=== PATIENT | male | born 1965 ===

== ENCOUNTER 2020-07-10 07:16 | Day surgery (SDC) | payer OTHER ==
[~2020-07-10] VITALS: Ht 182.9 cm; Wt 168.2 kg
[2020-07-10 07:49] LABS: BASOPHILS 0.3 % (0-2); CALCIUM 9.6 mg/dL (8.5-10.1); CARBON DIOXIDE 31.2 mmol/L (21.0-32.0); CREATININE - SERUM 1.1 mg/dL (0.6-1.3); EOSINOPHILS 1.1 % (0-7); HEMOGLOBIN 14.1 g/dL (13.5-17.5); IMMATURE GRANULOCYTES 0.3 % (0-5); LYMPHOCYTES 18.4 % (15-50); MCH 28.3 pg (26.0-34.0); MCHC 32.8 g/dL (31.0-37.0); MCV 86.2 fL (80.0-100.0); MEAN PLATELET VOLUME 9.4 fL (7.4-10.4); NEUTROPHIL ABS# 7.63 10x3/uL (1.78-5.38); NEUTROPHILS 73.9 % (40-80); PLATELET COUNT 330 10x3/uL (130-400); POTASSIUM - SERUM 3.2 mmol/L (3.5-5.1); RBC 4.99 10x6/uL (4.20-6.10); RDW 14.7 % (11.5-14.5); WBC 10.3 10x3/uL (4.8-10.8)
[2020-07-10] MEDS ORDERED: COZAAR100 MG PO (08:13)
[2020-07-10] MEDS ORDERED: CELEXA20 MG PO (08:13)
[2020-07-10] MEDS ORDERED: MELOXICAM TAB 15M (08:13)
[2020-07-10] MEDS ORDERED: GLIPIZIDE5 MG PO (08:13)
[2020-07-10] MEDS ORDERED: ZOCOR40 MG PO (08:14)
[2020-07-10] MEDS ORDERED: GLUCOPHAGE500 MG PO (08:14)
[2020-07-10] MEDS ORDERED: PIOGLITAZONE TAB 30M (08:14)
[2020-07-10] MEDS ORDERED: HCTZ25 MG PO (08:15)
[2020-07-10] MEDS ORDERED: ALLOPURINOL TAB 300 (08:15)
[2020-07-10 08:29] VITALS: BP 160/98; Ht 182.9 cm; Wt 168.2 kg
--- NOTE | 2020-07-10 09:38 | NUR ---
0978 DR. TREVINO ROUNDS AND GIVES PT. RESULTS AND RECOMMENDED METAMUCIL DAILY.
--- NOTE | 2020-07-10 09:39 | NUR ---
0983 PT'S. SPOUSE HERE.
--- NOTE | 2020-07-10 17:16 | OP ---
PATIENT NAME: CARRIE CORTÉS MEDICAL RECORD: [id number] :63 [facility] AD[facility]ION DATE: SURGEON: JAVI TREVINO DO DATE OF OPERATION: 07/10/2020 PROCEDURE: Colonoscopy with polypectomy. INDICATIONS FOR PROCEDURE: Screening for colorectal cancer. The patient's last colonoscopy was approximately 6 years ago. SCOPE: Olympus video pediatric colonoscope. MEDICATIONS: Propofol 400 mg IV per anesthesia. WITHDRAWAL TIME: 24 minutes. ESTIMATED BLOOD LOSS: Minimal. COMPLICATIONS: None. FINDINGS AND DESCRIPTION OF PROCEDURE: Informed consent was given. The patient was made comfortable with the above medication. After reaching an adequate level of sedation by slow IV push, the patient was placed on his left side. A digital rectal examination was performed and it was normal. The endoscope was then advanced under direct visualization through the rectum to the cecum, confirmed by the presence of the appendiceal orifice and ileocecal valve. The endoscope was slowly withdrawn, and the mucosa was carefully examined. The prep quality was fair with some adherent stool in the ascending colon and cecum. A significant amount of time was spent trying to clean the yadav as well as possible for visualization. There was a single benign-appearing sessile polyp, which measured approximately 2-mm in diameter located in the descending colon. It was removed using cold forceps. There was evidence of moderate diverticulosis involving the descending and sigmoid colon. There was no evidence of diverticulitis. Retroflexion was performed in the rectum was visualization of grade I internal hemorrhoids without bleeding. The endoscope was withdrawn from the patient. The patient tolerated the procedure well and there were no complications. IMPRESSION: 1. Single benign-appearing polyp located in the descending colon, status post removal with cold forceps. 2. Moderate diverticulosis of the descending and sigmoid colon. 3. Grade I internal hemorrhoids without bleeding. PLAN AND RECOMMENDATIONS: 1. Discharge home when recovery parameters are met. 2. Follow up biopsy specimen results. 3. High fiber diet. 4. Supplement diet with one tablespoon of Metamucil daily. 5. Continue current medications. 6. Recall colonoscopy in 3-5 years based on the polyp removed on today's examination and the prep quality. 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
== END 2020-07-10 10:05 | disposition home or self-care (01) ==
LOC: D.OPS 07:16
PROVIDERS: Anesthesiology; ATTEND Internal Medicine Gastroenterology
DX: Z12.11 Encounter for screening for malignant neoplasm of colon (principal); K63.5 Polyp of colon; K57.30 Diverticulosis of large intestine without perforation or abscess without bleeding; K64.0 First degree hemorrhoids